=== PATIENT | female | born 1955 | race Caucasian/White ===

== ENCOUNTER 2016-09-25 08:43 | Observation (INO) | payer OTHER ==
[2016-09-25] VITALS (8 sets, daily range): BP systolic 109–138; BP diastolic 52–82; PULSE 74–84; RESP 14–21; TEMP 97.3–98.8; O2SAT 95–99
[~2016-09-25] VITALS: Ht 157.5 cm; Wt 77.0 kg
[~2016-09-25 08:43] MED LIST: AZO; VALA500
[2016-09-25] MEDS ORDERED: SODIUM CHLORID 0.9% 500 ML INJ 500 ML IV ONE (09:15)
[2016-09-25] MEDS ORDERED: SODIUM CHLORIDE 0.9% FLUSH 10 ML FLUSH IVF PRN (09:15)
--- NOTE | 2016-09-25 09:19 | PD ---
HPI Chief Complaint: Chest Pain Time Seen by Provider: 09:05 Travel History International Travel<30 days: No Contact w/Intl Traveler<30days: No Traveled to known affect area: No History of Present Illness HPI Patient is a 61-year-old female who presents to emergency room with complaints of chest pain. Patient reports that chest pain began last night around 9 PM, reports that she was watching TV, reports that she began to have a sharp stabbing sensation to her chest substernally, reports this chest pain radiates to her back. Patient reports that she felt short of breath and diaphoretic with her symptoms, reports that it was hard for her to take a deep breath. Patient reports that she went to bed and woke up this morning with similar symptoms, reports the symptoms have progressed and have gotten worse this morning. Patient reports no history of cardiac disease, denies history of hypertension, hyperlipidemia, diabetes. Patient reports that her father had history of LA in his 50s, history of severe cardiac disease. PFSH Past Medical History Asthma: No Autoimmune Disease: No Endocrine: No Glaucoma: No Genitourinary: No Hypertension: No Immune Disorder: No Musculoskeletal: No Neurologic: No Respiratory: No Sickle Cell Disease: No ?: Not Past Surgical History Gynecologic Surgery: Yes (FIBROID REMOVED) Oral Surgery: No Family History Family Myocardial Infarction: Yes Social History Alcohol Use: Yes Tobacco Use: No Substance Use: No Allergies-Medications (Allergen,Severity, Reaction): Coded Allergies: No Known Allergies (Verified , 05/02/06) Reported Meds & Prescriptions Reported Meds & Active Scripts Active Reported Valtrex (Valacyclovir HCl) 500 Mg Tab [Azo] Review of Systems General / Constitutional: No: Fever Eyes: No: Visual changes HENT: No: Headaches Cardiovascular: Positive: Chest Pain or Discomfort, Diaphoresis Respiratory: Positive: Shortness of Breath Gastrointestinal: No: Abdominal Pain Genitourinary: No: Dysuria Musculoskeletal: No: Pain Skin: No Rash Neurologic: No: Weakness Psychiatric: No: Depression Endocrine: No: Polydipsia Hematologic/Lymphatic: No: Easy Bruising Physical Exam Narrative GENERAL: Mild distress SKIN: Focused skin assessment warm/dry. HEAD: Atraumatic. Normocephalic. EYES: Pupils equal and round. No scleral icterus. No injection or drainage. ENT: No nasal bleeding or discharge. Mucous membranes pink and moist. NECK: Trachea midline. No JVD. CARDIOVASCULAR: Regular rate and rhythm. No murmur appreciated. RESPIRATORY: No accessory muscle use. Clear to auscultation. Breath sounds equal bilaterally. GASTROINTESTINAL: Abdomen soft, non-tender, nondistended. Hepatic and splenic margins not palpable. MUSCULOSKELETAL: No obvious deformities. No clubbing. No cyanosis. No edema. NEUROLOGICAL: Awake and alert. No obvious cranial nerve deficits. Motor grossly within normal limits. Normal speech. PSYCHIATRIC: Appropriate mood and affect; insight and judgment normal. Data Data Last Documented VS Vital Signs Date Time Temp Pulse Resp B/P Pulse Ox O2 Delivery O2 Flow Rate FiO2 09/25/16 09:27 78 127/52 99 Room Air 09/25/16 08:45 98.8 20 Orders B-Type Natriuretic Peptide (09/25/16 09:05) Ckmb (Isoenzyme) Profile (09/25/16 09:05) Complete Blood Count With Diff (09/25/16 09:05) Comprehensive Metabolic Panel (09/25/16 09:05) Prothrombin Time / Inr (Pt) (09/25/16 09:05) Act Partial Throm Time (Ptt) (09/25/16 09:05) Troponin I (09/25/16 09:05) Lipase (09/25/16 09:05) Chest, Single Ap (09/25/16 09:05) Ecg Monitoring (09/25/16 09:05) Bilateral Bp Monitoring (09/25/16 09:05) Iv Access Insert/Monitor (09/25/16 09:05) Oximetry (09/25/16 09:05) Sodium Chloride 0.9% Flush (Ns Flush) (09/25/16 09:15) Sodium Chlorid 0.9% 500 Ml Inj (Ns 500 M (09/25/16 09:15) Cta Thor Abd Aorta W Iv C W3d (09/25/16 09:05) CKMB (09/25/16 09:00) CKMB% (09/25/16 09:00) Electrocardiogram (09/25/16 08:58) Iohexol 350 Inj (Omnipaque 350 Inj) (09/25/16 11:18) Labs Laboratory Tests Test 09/25/16 09:00 White Blood Count 7.6 TH/MM3 Red Blood Count 4.81 MIL/MM3 Hemoglobin 14.2 GM/DL Hematocrit 42.0 % Mean Corpuscular Volume 87.2 FL Mean Corpuscular Hemoglobin 29.6 PG Mean Corpuscular Hemoglobin 33.9 % Concent Red Cell Distribution Width 13.3 % Platelet Count 187 TH/MM3 Mean Platelet Volume 8.2 FL Neutrophils (%) (Auto) 70.6 % Lymphocytes (%) (Auto) 16.3 % Monocytes (%) (Auto) 9.7 % Eosinophils (%) (Auto) 3.0 % Basophils (%) (Auto) 0.4 % Neutrophils # (Auto) 5.4 TH/MM3 Lymphocytes # (Auto) 1.2 TH/MM3 Monocytes # (Auto) 0.7 TH/MM3 Eosinophils # (Auto) 0.2 TH/MM3 Basophils # (Auto) 0.0 TH/MM3 CBC Comment DIFF FINAL Differential Comment Prothrombin Time 10.2 SEC Prothromb Time International 0.9 RATIO Ratio Activated Partial 30.9 SEC Thromboplast Time Sodium Level 136 MEQ/L Potassium Level 4.3 MEQ/L Chloride Level 104 MEQ/L Carbon Dioxide Level 24.9 MEQ/L Anion Gap 7 MEQ/L Blood Urea Nitrogen 13 MG/DL Creatinine 0.92 MG/DL Estimat Glomerular Filtration 62 ML/MIN Rate Random Glucose 93 MG/DL Calcium Level 9.2 MG/DL Total Bilirubin 0.6 MG/DL Aspartate Amino Transf 25 U/L (AST/SGOT) Alanine Aminotransferase 32 U/L (ALT/SGPT) Alkaline Phosphatase 86 U/L Total Creatine Kinase 111 U/L Creatine Kinase MB 0.9 NG/ML Troponin I LESS THAN 0.02 NG/ML B-Type Natriuretic Peptide 10 PG/ML Total Protein 8.1 GM/DL Albumin 3.8 GM/DL Lipase 943 U/L [facility] Medical Decision Making Medical Screen Exam Complete: Yes Emergency Medical Condition: Yes Interpretation(s) EKG at 0858: NSR at 71bpm, qt/qtc: 369/391, no acute st or t wave changes Differential Diagnosis ACS, arrhythmia, electrolyte abnormality, PE, aortic dissection, costochondritis Narrative Course 61-year-old female who presents to emergency room with complaints of chest pain , patient reports that she began to have chest pain while watching TV last night around 9 PM. Patient is chest pain is substernal nature, reports sharp stabbing pain bring her back. Patient also reports shortness of breath, diaphoresis, nausea with symptoms. No history of chest pain in the past, no history of cardiac disease in the past. Patient was placed on a podopediatrician upon arrival to the emergency room. EKG normal sinus rhythm and no ST or T-wave changes. Plan to obtain lab work including cardiac enzymes, CT ordered to rule out dissection. Patient reports that she did take a full dose aspirin prior to coming to emergency room today. Laboratory Tests Test 09/25/16 09:00 White Blood Count 7.6 TH/MM3 (4.0-11.0) Red Blood Count 4.81 MIL/MM3 (4.00-5.30) Hemoglobin 14.2 GM/DL (11.6-15.3) Hematocrit 42.0 % (35.0-46.0) Mean Corpuscular Volume 87.2 FL (80.0-100.0) Mean Corpuscular Hemoglobin 29.6 PG (27.0-34.0) Mean Corpuscular Hemoglobin 33.9 % Concent (32.0-36.0) Red Cell Distribution Width 13.3 % (11.6-17.2) Platelet Count 187 TH/MM3 (150-450) Mean Platelet Volume 8.2 FL (7.0-11.0) Neutrophils (%) (Auto) 70.6 % (16.0-70.0) Lymphocytes (%) (Auto) 16.3 % (9.0-44.0) Monocytes (%) (Auto) 9.7 % (0.0-8.0) Eosinophils (%) (Auto) 3.0 % (0.0-4.0) Basophils (%) (Auto) 0.4 % (0.0-2.0) Neutrophils # (Auto) 5.4 TH/MM3 (1.8-7.7) Lymphocytes # (Auto) 1.2 TH/MM3 (1.0-4.8) Monocytes # (Auto) 0.7 TH/MM3 (0-0.9) Eosinophils # (Auto) 0.2 TH/MM3 (0-0.4) Basophils # (Auto) 0.0 TH/MM3 (0-0.2) CBC Comment DIFF FINAL Differential Comment Prothrombin Time 10.2 SEC (9.8-11.6) Prothromb Time International 0.9 RATIO Ratio Activated Partial 30.9 SEC Thromboplast Time (24.3-30.1) Sodium Level 136 MEQ/L (136-145) Potassium Level 4.3 MEQ/L (3.5-5.1) Chloride Level 104 MEQ/L (98-107) Carbon Dioxide Level 24.9 MEQ/L (21.0-32.0) Anion Gap 7 MEQ/L (5-15) Blood Urea Nitrogen 13 MG/DL (7-18) Creatinine 0.92 MG/DL (0.50-1.00) Estimat Glomerular Filtration 62 ML/MIN (>89) Rate Random Glucose 93 MG/DL (74-106) Calcium Level 9.2 MG/DL (8.5-10.1) Total Bilirubin 0.6 MG/DL (0.2-1.0) Aspartate Amino Transf 25 U/L (15-37) (AST/SGOT) Alanine Aminotransferase 32 U/L (10-53) (ALT/SGPT) Alkaline Phosphatase 86 U/L (45-117) Total Creatine Kinase 111 U/L (26-192) Creatine Kinase MB 0.9 NG/ML (0.5-3.6) Troponin I LESS THAN 0.02 NG/ML (0.02-0.05) B-Type Natriuretic Peptide 10 PG/ML (0-100) Total Protein 8.1 GM/DL (6.4-8.2) Albumin 3.8 GM/DL (3.4-5.0) Lipase 943 U/L (73-393) Last Impressions Chest X-Ray 09/25/16 0905 Signed Impressions: Service Date/Time: Sunday, September 25, 2016 09:28 - CONCLUSION: No acute disease. Rosas Vaca MD Physician Communication Physician Communication case reviewed with Dr. Ardon who accepts patient to service Diagnosis Primary Impression: Pancreatitis Qualified Code: K85.80 - Other acute pancreatitis, unspecified complication status Additional Impression: Chest pain Qualified Code: R07.9 - Chest pain, unspecified type Admitting Information Admitting Physician Requests: Observation Chloe Romo DO Sep 25, 2016 09:19
[2016-09-25 09:24] LABS: AUTOMATED NEUTROPHIL # 5.4 TH/MM3 (1.8-7.7); BASOPHIL % 0.4 % (0.0-2.0); EOSINOPHIL # 0.2 TH/MM3 (0-0.4); HEMO FLAGS DIFF FINAL; LYMPH % 16.3 % (9.0-44.0); LYMPHOCYTE # 1.2 TH/MM3 (1.0-4.8); MEAN CELL VOLUME 87.2 FL (80.0-100.0); MEAN CORPUSCULAR HEMOGLOBIN 29.6 PG (27.0-34.0); MEAN CORPUSCULAR HGB CONC 33.9 % (32.0-36.0); MONO % 9.7 % (0.0-8.0); NEUT % 70.6 % (16.0-70.0); PLATELET COUNT 187 TH/MM3 (150-450); RED BLOOD COUNT 4.81 MIL/MM3 (4.00-5.30); RED CELL DISTRIBUTION WIDTH 13.3 % (11.6-17.2); WHITE BLOOD COUNT 7.6 TH/MM3 (4.0-11.0)
[2016-09-25 09:31] LABS: APTT (PATIENT) 30.9 SEC (24.3-30.1); INTERNATIONAL NORMALIZED RATIO 0.9 RATIO; PROTHROMBIN TIME - PATIENT 10.2 SEC (9.8-11.6)
--- NOTE | 2016-09-25 10:10 | RADRPT ---
EXAM DATE/TIME: 09/25/2016 09:28 [facility] COMPARISON: No previous studies available for comparison. INDICATIONS : Chest and back pain. MEDICAL HISTORY : None. SURGICAL HISTORY : None. ENCOUNTER: Initial ACUITY: 1 day PAIN SCORE: 10/10 LOCATION: Bilateral chest FINDINGS: A single view of the chest demonstrates the lungs to be symmetrically aerated without evidence of mas s, infiltrate or effusion. The cardiomediastinal contours are unremarkable. Osseous structures are intact. CONCLUSION: No acute disease. Rosas Vaca MD on September 25, 2016 at 10:08 Board Certified Radiologist. This report was verified electronically.
[2016-09-25 10:14] LABS: ALKALINE PHOSPHATASE 86 U/L (45-117); ALT (GPT) 32 U/L (10-53); ANION GAP 7 MEQ/L (5-15); AST (GOT) 25 U/L (15-37); BICARBONATE 24.9 MEQ/L (21.0-32.0); BLOOD UREA NITROGEN 13 MG/DL (7-18); CHLORIDE 104 MEQ/L (98-107); CREATINE KINASE 111 U/L (26-192); GLOMERULAR FILTRATION RATE 62 ML/MIN (>89); POTASSIUM 4.3 MEQ/L (3.5-5.1); SODIUM (NA) 136 MEQ/L (136-145); TOTAL BILIRUBIN ADULT 0.6 MG/DL (0.2-1.0)
[2016-09-25 10:27] LABS: CKMB 0.9 NG/ML (0.5-3.6)
[2016-09-25] MEDS ORDERED: IOHEXOL 350 MG/ML 10 ML VIAL (for RAD DIAG) IV ONE (11:18)
--- NOTE | 2016-09-25 11:57 | RADRPT ---
EXAM DATE/TIME: 09/25/2016 10:32 [facility] COMPARISON: No previous studies available for comparison. INDICATIONS : Substernal chest pain. IV CONTRAST: 90 cc Omnipaque 350 (iohexol) IV RADIATION DOSE: 9.28 CTDIvol (mGy) MEDICAL HISTORY : None SURGICAL HISTORY : None. ENCOUNTER: Initial ACUITY: 2 days PAIN SCALE: 5/10 LOCATION: Chest TECHNIQUE: Volumetric scanning was performed using a multi-row detector CT scanner. The data was post processed with a variety of visualization algorithms including full volume maximum intensity projection, multi -planar sliding thin slab reformation, curved planar reformation, and surface rendering techniques. Using automated exposure control and adjustment of the mA and/or kV according to patient size, radiat ion dose was kept as low as reasonably achievable to obtain optimal diagnostic quality images. FINDINGS: There is good visualization of the aorta. There is no evidence for dissection. There is very minima l thickening of the ascending aortic wall. There is good visualization of the pulmonary arteries. T here is no evidence for pulmonary embolism. There is no pericardial effusion identified. The descending aorta shows some mild scattered calcifications. The celiac and superior mesenteric ar maureen are widely patent. Two renal arteries are noted on the left with one on the right. The distal aorta and both common iliacs are patent through the level of the common femorals. There are no suspicious lung lesions identified. The liver is free of focal defects. Small gallstones are seen in a benign appearing gallbladder. Sp grace, pancreas, and adrenals and kidneys are unremarkable. Moderate stool is seen throughout the col on. There is no ascites or adenopathy appreciated. There is a large fibroid uterus evident. There is no free fluid present. There is no ascites or sheila nopathy. Review of bone windows reveals only degenerative changes. CONCLUSION: 1. Degenerative changes in the lumbar spine. 2. Minimal soft tissue around the ascending aorta in a nonspecific fashion. There is no evidence fo r a dissection. Acute aortic syndrome is thought to be much less likely. There is no pericardi al fluid. There is no evidence for pulmonary emboli. 3. Fibroid uterus. Rehan Radford MD FACR on September 25, 2016 at 11:23 Board Certified Radiologist. This report was verified electronically.
[2016-09-25] MEDS ORDERED: SODIUM CHLORIDE 0.9% FLUSH 10 ML FLUSH IV FLUSH PRN (12:30)
[2016-09-25] MEDS ORDERED: ACETAMINOPHEN 500 MG CPLT PO PRN (12:30)
[2016-09-25] MEDS ORDERED: LOVA40TA PO (12:32)
[2016-09-25] MEDS ORDERED: ONDANSETRON HCL 4 MG/2 ML VIAL IV PRN (12:45)
[2016-09-25] MEDS: PANTOPRAZOLE SOD 40 MG DELAYED RELEASE TAB PO SCH (13:00)
[2016-09-25 13:57] LABS: CREATINE KINASE 105 U/L (26-192)
[2016-09-25] MEDS: PRAVASTATIN SOD 40 MG TAB PO SCH (15:31)
--- NOTE | 2016-09-25 16:30 | HHI.HP ---
HPI Service [facility]ists Primary Care Physician Jose Luis Navarro MD, PhD Admission Diagnosis Chest pain, pancreatitis Chief Complaint: Chest pain Travel History International Travel<30 Days: No Contact w/Intl Traveler <30 Da: No Traveled to Known Affected Are: No History of Present Illness Mrs. Ruelas is a pleasant 61 y/o WF with hyperlipidemia who presented to the ED with complaints of chest pain that began last night, midsternal pressure with radiation to her back between her shoulder blades. She states that she had the pain last night but was able to fall sleep but did wake her up during the night. When she woke up this morning and was still having pain but went to work. She states that she called her PCP office and was recommended to come to the ED. She states that she took an ASA at work and the pain seemed to improve slightly. When she arrived to the ED she was no longer having pain. She had a reoccurrence of the pain in the ED when she transitioned from the stretcher to the wheelchair. She states that she noted the pain was more severe with certain movement. Denies any associated SOB, palpitations, nausea/vomiting, diaphoresis. Pt denies any heavy lifting, exertional activity or straining recently. Denies any regular NSAID use. Denies any new medications. She denies any reflux or dysphagia. No hx of liver or kidney issues. Her CE and EKG are negative. Incidentally her lipase was elevated at 943 at admission. She denies any increase in the pain with food or fluid intake. Review of Systems Constitutional: DENIES: Diaphoretic episodes, Fever, Weight loss, Change in appetite Eyes: DENIES: Vision loss Ears, nose, mouth, throat: DENIES: Hearing loss Respiratory: DENIES: Cough, Sputum production Cardiovascular: COMPLAINS OF: Chest pain, DENIES: Palpitations, Dyspnea on Exertion, Lower Extremity Edema Gastrointestinal: DENIES: Abdominal pain, Diarrhea, Nausea, Vomiting Musculoskeletal: DENIES: Joint pain, Joint Swelling Integumentary: DENIES: Rash Hematologic/lymphatic: DENIES: Bruising Neurologic: DENIES: Headache Psychiatric: DENIES: Confusion Past Family Social History Past Medical History Hyperlipidemia Lumbar radiculopathy DDD Subclinical hypothyroidism Past Surgical History Cesarian section D&C Uterine fibroid embolization Uterine Myomectomy Tonsillectomy Reported Medications Lovastatin 40 Mg PO DAILY Allergies: Coded Allergies: No Known Allergies (Verified , 05/02/06) Family History Father with hx of CAD, alcohol abuse, had CAD in his 40's or 50's and in his 60's Mother with hx of CAD in her 60 or 70's but lived to be 90y/o Sister with HTN and hypothyroidism Social History Denies any hx tobacco use, alcohol abuse or illicit drug use Physical Exam Vital Signs Vital Signs Date Time Temp Pulse Resp B/P Pulse Ox O2 Delivery O2 Flow Rate FiO2 09/25/16 14:34 98.0 79 14 120/77 99 09/25/16 14:33 84 14 120/77 98 Room Air 09/25/16 12:11 74 14 121/76 98 Room Air 09/25/16 09:27 78 127/52 99 Room Air 09/25/16 09:27 76 129/73 09/25/16 09:25 Room Air 09/25/16 08:45 98.8 78 20 110/74 96 Room Air Physical Exam GENERAL: This is a well-nourished, well-developed patient, in no apparent distress. HEENT: Atraumatic. Normocephalic. No temporal or scalp tenderness. No scleral icterus. Airway patent. NECK: Trachea midline, supple, nontender. CARDIO: Regular. RESP: CTA bilaterally. No wheezes, rales, or rhonchi. ABD: +BS, soft, non-tender, nondistended. EXT: Extremities without clubbing, cyanosis, or edema. NEURO: Awake and alert. Motor and sensory grossly within normal limits. Normal speech. Laboratory Laboratory Tests Test 09/25/16 09/25/16 09:00 13:03 White Blood Count 7.6 Red Blood Count 4.81 Hemoglobin 14.2 Hematocrit 42.0 Mean Corpuscular Volume 87.2 Mean Corpuscular Hemoglobin 29.6 Mean Corpuscular Hemoglobin 33.9 Concent Red Cell Distribution Width 13.3 Platelet Count 187 Mean Platelet Volume 8.2 Neutrophils (%) (Auto) 70.6 Lymphocytes (%) (Auto) 16.3 Monocytes (%) (Auto) 9.7 Eosinophils (%) (Auto) 3.0 Basophils (%) (Auto) 0.4 Neutrophils # (Auto) 5.4 Lymphocytes # (Auto) 1.2 Monocytes # (Auto) 0.7 Eosinophils # (Auto) 0.2 Basophils # (Auto) 0.0 CBC Comment DIFF FINAL Differential Comment Prothrombin Time 10.2 Prothromb Time International 0.9 Ratio Activated Partial 30.9 Thromboplast Time Sodium Level 136 Potassium Level 4.3 Chloride Level 104 Carbon Dioxide Level 24.9 Anion Gap 7 Blood Urea Nitrogen 13 Creatinine 0.92 Estimat Glomerular Filtration 62 Rate Random Glucose 93 Calcium Level 9.2 Total Bilirubin 0.6 Aspartate Amino Transf 25 (AST/SGOT) Alanine Aminotransferase 32 (ALT/SGPT) Alkaline Phosphatase 86 Total Creatine Kinase 111 105 Creatine Kinase MB 0.9 Troponin I LESS THAN 0.02 LESS THAN 0.02 B-Type Natriuretic Peptide 10 Total Protein 8.1 Albumin 3.8 Lipase 943 Result Diagram: 09/25/1689909/25/16899 Imaging Last Impressions Chest X-Ray 09/25/16904 Signed Impressions: Service Date/Time: Sunday, September 25, 2016 09:28 - CONCLUSION: No acute disease. Rosas Vaca MD Aorta CTA 09/25/16904 Signed Impressions: Service Date/Time: Sunday, September 25, 2016 10:32 - CONCLUSION: 1. Degenerative changes in the lumbar spine. 2. Minimal soft tissue around the ascending aorta in a nonspecific fashion. There is no evidence for a dissection. Acute aortic syndrome is thought to be much less likely. There is no pericardial fluid. There is no evidence for pulmonary emboli. 3. Fibroid uterus. Rehan Radford MD FACR Septic Shock Reassessment Heart: Regular rate and rhythm Lungs: Clear Skin: Warm Peripheral Pulses: Bounding Right Radial Bounding Left Radial Bounding Right Popliteal Bounding Left Popliteal Bounding Right Dorsalis Pedis Bounding Left Dorsalis Pedis Bounding Right Posterior Tibial Bounding Left Posterior Tibial Assessment and Plan Problem List: (1) Chest pain Status: Acute Plan: - Patient was admitted with acute onset of midsternal chest pain that began the evening prior to admission. This pain radiates to her back, between the shoulder blades. Seems to worsen occasionally with changing position but not necessarily leaning forward. The patient does have some reproducible pain on exam and appears to have some muscle tightness but states that this is not the same pain she was experiencing which brought her into the hospital. - CE and EKG x 2 are negative. - Aorta CTA (09/25) --> Degenerative changes in the lumbar spine. Minimal soft tissue around the ascending aorta in a nonspecific fashion. There is no evidence for a dissection. Acute aortic syndrome is thought to be much less likely. There is no pericardial fluid. There is no evidence for pulmonary emboli. Fibroid uterus. - Pts lipase is elevated, the significance of this is unclear. Pt has not had any GI symptoms, nausea/vomiting, reflux, belching/bloating and pain is not related to food intake. The pancreas was noted to be normal on the CT - The pain does not seem to be cardiac in nature but she does have family hx of CAD in her father in his 50's. - We will plan for Lexiscan tomorrow - The pain could be musculoskeletal related as she relates that the pain is occasionally related to positional changes and she does have some reproducible pain on exam. - Await third set of CE - Repeat Lipase in AM - Protonix 40mg po daily - Trial of a muscle relaxer, Flexeril 10mg TID PRN - Supportive care - DVT prophylaxis with SCDs (2) Hyperlipidemia Status: Chronic Plan: - Cont. home meds Assessment and Plan Patient examined. Assessment and plan formulated with Chloe Jones PA-C. I agree with the above. left side cp with some associated pain in upper cervical spine. would appear to be msk and spasm. some reproducibility with mvmt but not consistently. lipase elevated but clinically not pancreatitis. strong FH cad. will give muscle relaxer. tele and ce's overnight. recheck lipase. lexiscan in AM. if neg then d/c Problem Qualifiers (1) Chest pain: Qualified Code: R07.9 - Chest pain, unspecified type Chloe Jones Sep 25, 2016 16:30 Ko Cline MD Sep 25, 2016 17:36
[2016-09-25] MEDS ORDERED: CYCLOBENZAPRINE HCL 10 MG TAB PO PRN (17:15)
[2016-09-25] MEDS ORDERED: CYCLOBENZAPRINE HCL 10 MG TAB PO ONE (17:30)
[2016-09-25 19:01] LABS: CREATINE KINASE 99 U/L (26-192)
[2016-09-25] MEDS: SODIUM CHLORIDE 0.9% FLUSH 10 ML FLUSH IV FLUSH SCH (21:00)
--- NOTE | 2016-09-25 21:58 | EKG ---
Date Performed: 09/25/2016 Time Performed: 08:58:39 PTAGE: 61 years EKG: Sinus rhythm NORMAL ECG NO PREVIOUS TRACING DOCTOR: Glenn Hurd Interpretating Date/Time 09/25/2016 21:57:38
[2016-09-26 03:39] VITALS: BP 118/61; PULSE 87; RESP 20; TEMP 99.9; O2SAT 95
[2016-09-26] MEDS: PANTOPRAZOLE SOD 40 MG DELAYED RELEASE TAB PO SCH (08:08)
[2016-09-26] MEDS: PRAVASTATIN SOD 40 MG TAB PO SCH ×2 (08:08→08:23)
[2016-09-26] MEDS: SODIUM CHLORIDE 0.9% FLUSH 10 ML FLUSH IV FLUSH SCH (08:08)
[2016-09-26 08:11] VITALS: BP 118/71; PULSE 83; RESP 18; TEMP 99.1; O2SAT 97
[2016-09-26] MEDS ORDERED: CYCL1TAB29 PO (08:15)
--- NOTE | 2016-09-26 08:15 | HHI.PR ---
Subjective Remarks Pt reports that she has not had any further chest pain She did have relief of the pain with the Flexeril but it did make her very tired Pt planned for Lexiscan this morning. Objective Vitals Vital Signs Date Time Temp Pulse Resp B/P Pulse Ox O2 Delivery O2 Flow Rate FiO2 09/26/16 03:39 99.9 87 20 118/61 95 09/25/16 23:27 97.3 79 20 109/55 96 09/25/16 20:07 98.7 79 18 116/56 98 09/25/16 16:41 97.8 83 21 138/82 95 09/25/16 14:34 98.0 79 14 120/77 99 09/25/16 14:33 84 14 120/77 98 Room Air 09/25/16 12:11 74 14 121/76 98 Room Air 09/25/16 09:27 78 127/52 99 Room Air 09/25/16 09:27 76 129/73 09/25/16 09:25 Room Air 09/25/16 08:45 98.8 78 20 110/74 96 Room Air 09/25/16 09/25/16 09/26/16 15:00 23:00 07:00 Intake Total 200 ml Output Total 200 ml Balance 200 ml -200 ml Intake Oral 200 ml Output Urine Total 200 ml Result Diagram: 09/25/1689909/25/16899 Other Results Laboratory Tests Test 09/25/16 09/25/16 09/25/16 09:00 13:03 18:19 White Blood Count 7.6 TH/MM3 Red Blood Count 4.81 MIL/MM3 Hemoglobin 14.2 GM/DL Hematocrit 42.0 % Mean Corpuscular Volume 87.2 FL Mean Corpuscular Hemoglobin 29.6 PG Mean Corpuscular Hemoglobin 33.9 % Concent Red Cell Distribution Width 13.3 % Platelet Count 187 TH/MM3 Mean Platelet Volume 8.2 FL Neutrophils (%) (Auto) 70.6 % Lymphocytes (%) (Auto) 16.3 % Monocytes (%) (Auto) 9.7 % Eosinophils (%) (Auto) 3.0 % Basophils (%) (Auto) 0.4 % Neutrophils # (Auto) 5.4 TH/MM3 Lymphocytes # (Auto) 1.2 TH/MM3 Monocytes # (Auto) 0.7 TH/MM3 Eosinophils # (Auto) 0.2 TH/MM3 Basophils # (Auto) 0.0 TH/MM3 CBC Comment DIFF FINAL Differential Comment Prothrombin Time 10.2 SEC Prothromb Time International 0.9 RATIO Ratio Activated Partial 30.9 SEC Thromboplast Time Sodium Level 136 MEQ/L Potassium Level 4.3 MEQ/L Chloride Level 104 MEQ/L Carbon Dioxide Level 24.9 MEQ/L Anion Gap 7 MEQ/L Blood Urea Nitrogen 13 MG/DL Creatinine 0.92 MG/DL Estimat Glomerular Filtration 62 ML/MIN Rate Random Glucose 93 MG/DL Calcium Level 9.2 MG/DL Total Bilirubin 0.6 MG/DL Aspartate Amino Transf 25 U/L (AST/SGOT) Alanine Aminotransferase 32 U/L (ALT/SGPT) Alkaline Phosphatase 86 U/L Total Creatine Kinase 111 U/L 105 U/L 99 U/L Creatine Kinase MB 0.9 NG/ML Troponin I LESS THAN 0.02 LESS THAN 0.02 LESS THAN 0.02 NG/ML NG/ML NG/ML B-Type Natriuretic Peptide 10 PG/ML Total Protein 8.1 GM/DL Albumin 3.8 GM/DL Lipase 943 U/L Imaging Last Impressions Chest X-Ray 09/25/16904 Signed Impressions: Service Date/Time: Sunday, September 25, 2016 09:28 - CONCLUSION: No acute disease. Rosas Vaca MD Aorta CTA 09/25/16904 Signed Impressions: Service Date/Time: Sunday, September 25, 2016 10:32 - CONCLUSION: 1. Degenerative changes in the lumbar spine. 2. Minimal soft tissue around the ascending aorta in a nonspecific fashion. There is no evidence for a dissection. Acute aortic syndrome is thought to be much less likely. There is no pericardial fluid. There is no evidence for pulmonary emboli. 3. Fibroid uterus. Rehan Radford MD FACR Objective Remarks General: NAD, AAOx3 Chest: CTA Cardiac: Regular Abd: +BS, soft ND/NT Ext: No edema A/P Problem List: (1) Chest pain Status: Acute Plan: - Patient was admitted with acute onset of midsternal chest pain that began the evening prior to admission. This pain radiates to her back, between the shoulder blades. Seems to worsen occasionally with changing position but not necessarily leaning forward. The patient does have some reproducible pain on exam and appears to have some muscle tightness but states that this is not the same pain she was experiencing which brought her into the hospital. - CE and EKG x 3 are negative. - Aorta CTA (09/25) --> Degenerative changes in the lumbar spine. Minimal soft tissue around the ascending aorta in a nonspecific fashion. There is no evidence for a dissection. Acute aortic syndrome is thought to be much less likely. There is no pericardial fluid. There is no evidence for pulmonary emboli. Fibroid uterus. - Pts lipase is elevated, the significance of this is unclear. Pt has not had any GI symptoms, nausea/vomiting, reflux, belching/bloating and pain is not related to food intake. The pancreas was noted to be normal on the CT - The pain does not seem to be cardiac in nature but she does have family hx of CAD in her father in his 50's. - We will plan for Lexiscan today - The pain could be musculoskeletal related as she relates that the pain is occasionally related to positional changes and she does have some reproducible pain on exam. Pt had improvement in the pain with the Flexeril. - Await repeat labs today - Protonix 40mg po daily - Cont. Flexeril 10mg TID PRN - Supportive care - DVT prophylaxis with SCDs - If Lexiscan is negative and labs are stable anticipate discharge home this afternoon. (2) Hyperlipidemia Status: Chronic Plan: - Cont. home meds Assessment and Plan Patient examined. Assessment and plan formulated with Chloe Jones PA-C. I agree with the above. pain relieved with muscle relaxer. марина neg. f/u pcp. no sx's of pancreatitis. f/u pcp. Problem Qualifiers (1) Chest pain: Qualified Code: R07.9 - Chest pain, unspecified type Chloe Jones Sep 26, 2016 08:15 Ko Cline MD Sep 26, 2016 16:20
--- NOTE | 2016-09-26 08:16 | HHI.DCPOC ---
Discharge Care Plan Diagnosis: (1) Hyperlipidemia (2) Chest pain (3) Elevated lipase Goals to Promote Your Health * To prevent worsening of your condition and complications * To maintain your health at the optimal level Directions to Meet Your Goals Take your medications as prescribed Follow your dietary instruction Follow activity as directed Keep your appointments as scheduled Take your immunizations and boosters as scheduled If your symptoms worsen call your PCP, if no PCP go to Urgent Care Center or Emergency Room Smoking is Dangerous to Your Health. Avoid second hand smoke Call the 24-hour hour crisis hotline for domestic abuse at Chloe Jones Sep 26, 2016 08:16
[2016-09-26 09:14] VITALS: PULSE 79
[2016-09-26] MEDS ORDERED: REGADENOSON INJ 0.4 MG/5 ML SYR ONE (09:29)
--- NOTE | 2016-09-26 11:37 | RADRPT ---
EXAM DATE/TIME: 09/26/2016 09:04 [facility] COMPARISON: No previous studies available for comparison. INDICATIONS : Midchest pain radiating to the back for 1 day. Angina. DOSE: 26.8 mCi Tc99m Myoview at stress. 8.3 mCi Tc99m Myoview at rest. 0.4 mg Lexiscan STRESS SYMPTOMS: Shortness of breath. EJECTION FRACTION: > 70% MEDICAL HISTORY : Hypercholesterolemia. SURGICAL HISTORY : section. Fibroid removed. ENCOUNTER: Initial ACUITY: 1 day PAIN SCALE: 3/10 LOCATION: Midsternal chest TECHNIQUE: The patient underwent pharmacologic stress with infusion of prescribed dose. Continuous ECG tracing was monitored during stress. Gated SPECT imaging was performed after stress and conventional SPECT i maging was performed at rest. The examination was performed on a SPECT/CT scanner, both attenuation and non-corrected datasets were reviewed. FINDINGS: DISTRIBUTION: The maximum perfused segment at stress is in the anterolateral wall. PERFUSION STUDY: The pattern of perfusion at stress is within normal limits. GATED STUDY: There is intact wall motion and thickening without hypokinetic or dyskinetic segments. CONCLUSION: Unremarkable study. RISK CATEGORY: Low (<1% Annual Mortality Rate) Sara Merino MD on September 26, 2016 at 11:35 Board Certified Radiologist. This report was verified electronically.
--- NOTE | 2016-09-26 12:22 | EKG ---
Date Performed: 09/25/2016 Time Performed: 18:48:55 PTAGE: 61 years EKG: Sinus rhythm NORMAL ECG Compared to prior tracing no significant change PREVIOUS TRACING : 09/25/2016 08.58 DOCTOR: Daryn Amaya Interpretating Date/Time 09/26/2016 12:19:54
[2016-09-26 13:30] VITALS: BP 116/70; PULSE 80; RESP 18; TEMP 96.8; O2SAT 97
== END 2016-09-26 15:25 | disposition home or self-care (01) ==
LOC: NEPC 08:43 → NEDA 12:13 → NEPHCDU 15:40
PROVIDERS: ADMIT Hospitalist; ATTEND Hospitalist
DX: R07.9 Chest pain, unspecified (principal); R06.02 Shortness of breath; R61 Generalized hyperhidrosis; E78.5 Hyperlipidemia, unspecified; E03.9 Hypothyroidism, unspecified; M54.16 Radiculopathy, lumbar region
CPT/HCPCS: 71010; 71275; 74174; 78452; 80053; 82550; 82552; 83690; 83880; 84484; 85025; 85610; 85730; 93005; 93017; 96360; 99285; A9502; G0378; J2785; J7040; Q9967